=== PATIENT | female | born 1950 | race Caucasian/White ===

== ENCOUNTER → 2017-06-24 | Outpatient (CLI) | payer BC ==
[~2017-06-24] MED LIST: ASPEC81; CALC500C70 PO; FRRS300 PO; MULT-506 PO
--- NOTE | 2017-06-24 15:02 | MAMMOGRAPHY REPORT ---
BILATERAL DIGITAL SCREENING MAMMOGRAM TOMOSYNTHESIS WITH CAD: 06/24/2017 CLINICAL HISTORY: Routine screening. Patient has no complaints. TECHNIQUE: Breast tomosynthesis in addition to standard 2D mammography was performed. Current study was also evaluated with a Computer Aided Detection (CAD) system. COMPARISON: Comparison is made to exams dated: 05/07/2016 mammogram, 05/03/2015 mammogram, 05/06/2014 m ammogram, 04/27/2014 mammogram, 04/22/2013 mammogram, and 10/15/2012 ultrasound - [facility] enter. BREAST COMPOSITION: The tissue of both breasts is heterogeneously dense, which may obscure small mas ses. FINDINGS: A linear scar marker overlies the right axilla on the MLO view. There are a few benign-lilliam earing calcifications. No suspicious mass, architectural distortion or cluster of microcalcification s is seen. IMPRESSION: ACR BI-RADS CATEGORY 1: NEGATIVE There is no mammographic evidence of malignancy. A 1 year screening mammogram is recommended. The pa tient will receive written notification of the results. Approximately 10% of breast cancers are not detected with mammography. A negative mammographic report should not delay biopsy if a clinically suggestive mass is present. Tigist Barajas M.D. ay/:06/24/2017 08:00:43 Medical Care Administrator: Nelda BURROWSR, M, [facility] letter sent: Normal 1/2 BI-RADS Code: ACR BI-RADS Category 1: Negative
== END | disposition home or self-care (01) ==
LOC: C.MAMM 07:13
PROVIDERS: ATTEND Family Medicine
DX: Z12.31 Encounter for screening mammogram for malignant neoplasm of breast (principal)